=== PATIENT | male | born 1950 | race Caucasian/White ===

== ENCOUNTER 2018-03-08 08:59 | Outpatient (CLI) | payer BC ==
[2018-03-08] MEDS ORDERED: Gadobenate Dimeglumine 529 MG/1 ML (20ML VIAL) ONE (10:38)
[2018-03-08 11:02] LABS: Estimated GFR-MDRD - POC Greater than 90
--- NOTE | 2018-03-08 11:43 | RAD ---
[facility] VIEW OF SINUSES: Date: 03/08/18 HISTORY: MRI screening for metal. FINDINGS: Sinuses are clear. No metallic foreign body is seen. IMPRESSION: No evidence of metallic foreign body. POS: [facility]
--- NOTE | 2018-03-08 13:50 | MRI ---
MRI OF THE ABDOMEN WITHOUT AND WITH CONTRAST: Date: 03/08/18 HISTORY: Hepatitis C with abnormality of alphafetoprotein. TECHNIQUE: Multiplanar, multisequence MR images were obtained of the abdomen without and with IV contrast. FINDINGS: In the right lobe of the liver, near the dome, there is a poorly circumscribed lesion measuring appro ximately 2.8 cm in size. This demonstrates a very subtle high T2 signal. After administration of cont rast, this area appears to enhance along the periphery. There is questionable washout of this lesion on the delayed phase images compared to the background of the liver. This does not ever appear to enh ance centrally. There is an area of hyperenhancement peripheral to this abnormality which likely repr esents THID. Along the periphery of the liver in this area of THID, there is a tiny, nonenhancing foc us of high T2 signal measuring 2-3 mm in size which may represent a cyst. No biliary dilatation is se en. The gallbladder, kidneys, adrenal glands, spleen, and pancreas are unremarkable. No abdominal adenopa thy is seen. No marrow signal abnormality is present. IMPRESSION: Lesion in right lobe of liver. This is a LI-RADS Category 3 abnormality given its size and lack of ce ntral enhancement. A follow-up MRI in 3 months is recommended to evaluate for stability versus growth of the lesion. With growth, this would then place this lesion into a LI-RADS Category 4, for which b iopsy would be recommended. POS: [facility]
== END 2018-03-08 09:00 | disposition home or self-care (01) ==
LOC: BICMRI 08:59
PROVIDERS: ATTEND Internal Medicine Gastroenterology
DX: R77.2 Abnormality of alphafetoprotein (principal); Z86.19 Personal history of other infectious and parasitic diseases
CPT/HCPCS: 70210; 74183; 82565; A9579

== ENCOUNTER 2021-06-24 08:30 | Outpatient (CLI) | payer BC ==
[2021-06-24] MEDS ORDERED: Magnevist 469MG/ML 20 ML VIAL ONE ×2 (14:55)
== END 2021-06-24 08:31 | disposition home or self-care (01) ==
LOC: BICMRI 08:30
PROVIDERS: ATTEND Internal Medicine Hematology & Oncology
DX: C22.0 Liver cell carcinoma (principal); Z98.890 Other specified postprocedural states
CPT/HCPCS: 72197; 74183; A9579

== ENCOUNTER 2022-05-09 08:00 | Outpatient (CLI) | payer BC | END 2022-05-09 08:01 | disposition home or self-care (01) | LOC: PET 08:00 | PROVIDERS: ATTEND Internal Medicine Hematology & Oncology | DX: C22.0 Liver cell carcinoma (principal); R91.1 Solitary pulmonary nodule | CPT/HCPCS: 78815; A9552 ==

== ENCOUNTER 2023-01-31 10:15 | Outpatient (CLI) | payer BC | END 2023-01-31 10:16 | disposition home or self-care (01) | LOC: PET 10:15 | PROVIDERS: ATTEND Internal Medicine Hematology & Oncology | DX: C22.0 Liver cell carcinoma (principal) | CPT/HCPCS: 78815; A9552 ==

== ENCOUNTER 2024-02-08 08:45 | Outpatient (CLI) | payer BC | END 2024-02-08 08:46 | disposition home or self-care (01) | LOC: PET 08:45 | PROVIDERS: ATTEND Internal Medicine Hematology & Oncology | DX: C22.0 Liver cell carcinoma (principal); R77.2 Abnormality of alphafetoprotein | CPT/HCPCS: 78815; A9552 ==

== ENCOUNTER → 2024-04-23 | Day surgery (SDC) | payer MEDICARE ==
[~2024-04-23] MED LIST: Lidocaine 1% PF 5 ML VIAL ONE; Sodium Bicarbonate 2.5 MEQ/5 ML SDV ONE
[2024-04-23 13:17] LABS: %Basophils 1.6 % (0.0-1.0); %Eosinophils 11.5 % (0.0-10.0); %Lymphocytes 11.3 % (21.0-51.0); %Monocytes 8.2 % (0.0-10.0); %Neutrophils 67.2 % (42.0-75.0); Hematocrit 36.1 % (42.0-52.0); Hemoglobin 12.1 g/dL (14.0-18.0); Mean Corpuscular HGB CONC 33.5 g/dL (32.0-36.0); Mean Corpuscular Volume 92.6 fL (78.0-98.0); Mean Platelet Volume 9.7 fL (7.4-10.4); Platelet Count 156 10x3/uL (130-400); RBC Distribution Width 14.4 % (11.5-14.5)
[2024-04-23 13:30] LABS: Prothrombin Time 13.4 sec (12.0-14.7)
[2024-04-23 13:31] LABS: PTT 36.3 sec (22.9-36.1)
== END ==
LOC: ULT 13:00
PROVIDERS: ATTEND Physician Assistant Medical
PROC: 0W9G30Z Drainage of Peritoneal Cavity with Drainage Device, Percutaneous Approach (ICD-10-PCS; principal; 2024-04-23)
DX: R18.8 Other ascites (principal); I10 Essential (primary) hypertension; E78.00 Pure hypercholesterolemia, unspecified; Z79.82 Long term (current) use of aspirin; Z79.899 Other long term (current) drug therapy; Z79.890 Hormone replacement therapy; Z98.2 Presence of cerebrospinal fluid drainage device; Z87.891 Personal history of nicotine dependence
CPT/HCPCS: 36415; 49083; 85025; 85610; 85730

== ENCOUNTER → 2024-05-14 | Day surgery (SDC) | payer MEDICARE ==
[2024-05-14 14:37] VITALS: BP 127/71; TEMP 99.7
[2024-05-14 20:08] LABS: RBC Count-Automated (BF) 103 /cu.mm; WBC/Nucleated-Auto (BF) 274 /cu.mm
[2024-05-14 20:09] LABS: BF Color Yellow; Body Fluid Source Peritoneal Fluid; Clarity Clear (Clear); Tube # EDTA
[2024-05-15 10:42] LABS: BF Segmented Neutrophils 19 %; Cell Count Non Hematic 53 %; Lymphocytes 28 %
== END ==
LOC: ULT 12:08
PROVIDERS: ATTEND Internal Medicine Gastroenterology
PROC: 0W9G30Z Drainage of Peritoneal Cavity with Drainage Device, Percutaneous Approach (ICD-10-PCS; principal; 2024-05-14)
DX: R18.8 Other ascites (principal); C22.0 Liver cell carcinoma; I85.00 Esophageal varices without bleeding; E78.00 Pure hypercholesterolemia, unspecified; I10 Essential (primary) hypertension; Z95.5 Presence of coronary angioplasty implant and graft; Z98.890 Other specified postprocedural states; Z79.82 Long term (current) use of aspirin; Z79.899 Other long term (current) drug therapy; Z87.891 Personal history of nicotine dependence; Z88.5 Allergy status to narcotic agent
CPT/HCPCS: 49083; 82042; 84157; 85060; 88112; 88305; 89051

== ENCOUNTER 2024-05-28 09:14 | Day surgery (SDC) | payer MEDICARE ==
[2024-05-28 09:33] LABS: %Basophils 1.6 % (0.0-1.0); %Eosinophils 12.4 % (0.0-10.0); %Lymphocytes 15.6 % (21.0-51.0); %Monocytes 10.4 % (0.0-10.0); %Neutrophils 59.7 % (42.0-75.0); Hematocrit 33.6 % (42.0-52.0); Hemoglobin 10.9 g/dL (14.0-18.0); Mean Corpuscular HGB CONC 32.4 g/dL (32.0-36.0); Mean Corpuscular Hemoglobin 30.3 pg (27.0-31.0); Mean Corpuscular Volume 93.3 fL (78.0-98.0); Mean Platelet Volume 10.7 fL (7.4-10.4); Platelet Count 129 10x3/uL (130-400); RBC Distribution Width 14.9 % (11.5-14.5)
[2024-05-28 09:53] LABS: PTT 35.1 sec (22.9-36.1); Prothrombin Time 13.5 sec (12.0-14.7)
[2024-05-28] MEDS ORDERED: Sodium Bicarbonate 2.5 MEQ/5 ML SDV ONE (10:12)
[2024-05-28] MEDS ORDERED: Lidocaine 1% PF 5 ML VIAL ONE ×2 (10:12→10:51)
== END 2024-05-28 12:10 | disposition home or self-care (01) ==
LOC: ULT 09:14
PROVIDERS: ATTEND Internal Medicine Gastroenterology
PROC: 0W9G30Z Drainage of Peritoneal Cavity with Drainage Device, Percutaneous Approach (ICD-10-PCS; principal; 2024-05-28)
DX: R18.8 Other ascites (principal); C22.0 Liver cell carcinoma; I85.00 Esophageal varices without bleeding; E03.9 Hypothyroidism, unspecified; I10 Essential (primary) hypertension; E78.00 Pure hypercholesterolemia, unspecified; Z90.49 Acquired absence of other specified parts of digestive tract; Z98.890 Other specified postprocedural states; Z88.5 Allergy status to narcotic agent; Z79.82 Long term (current) use of aspirin; Z79.899 Other long term (current) drug therapy; Z79.890 Hormone replacement therapy; Z87.891 Personal history of nicotine dependence
CPT/HCPCS: 49083; 85025; 85610; 85730

== ENCOUNTER 2024-06-09 14:17 | Day surgery (SDC) | payer MEDICARE ==
[2024-06-09] MEDS ORDERED: Lidocaine 1% PF 5 ML VIAL ONE (14:44)
== END 2024-06-09 16:10 | disposition home or self-care (01) ==
LOC: ULT 14:17
PROVIDERS: ATTEND Internal Medicine Gastroenterology
PROC: 0W9G30Z Drainage of Peritoneal Cavity with Drainage Device, Percutaneous Approach (ICD-10-PCS; principal; 2024-06-09)
DX: R18.8 Other ascites (principal); I85.10 Secondary esophageal varices without bleeding; I10 Essential (primary) hypertension; E78.00 Pure hypercholesterolemia, unspecified; Z90.49 Acquired absence of other specified parts of digestive tract; Z79.82 Long term (current) use of aspirin; Z79.899 Other long term (current) drug therapy; Z87.891 Personal history of nicotine dependence
CPT/HCPCS: 49083

== ENCOUNTER 2024-06-17 09:30 | Outpatient (CLI) | payer MEDICARE | END 2024-06-17 09:31 | disposition home or self-care (01) | LOC: PET 09:30 | PROVIDERS: ATTEND Radiology Radiation Oncology | DX: C22.0 Liver cell carcinoma (principal); C79.71 Secondary malignant neoplasm of right adrenal gland | CPT/HCPCS: 78815; A9552 ==

== ENCOUNTER 2024-06-24 12:04 | Day surgery (SDC) | payer MEDICARE ==
[2024-06-24] MEDS ORDERED: Lidocaine 1% PF 5 ML VIAL ONE (12:05)
[2024-06-24] MEDS ORDERED: Sodium Bicarbonate 2.5 MEQ/5 ML SDV ONE (12:05)
== END 2024-06-24 13:40 | disposition home or self-care (01) ==
LOC: ULT 12:04
PROVIDERS: ATTEND Internal Medicine Gastroenterology
PROC: 0W9G3ZZ Drainage of Peritoneal Cavity, Percutaneous Approach (ICD-10-PCS; principal; 2024-06-24)
DX: R18.8 Other ascites (principal); C22.0 Liver cell carcinoma; I85.00 Esophageal varices without bleeding; I10 Essential (primary) hypertension; E78.00 Pure hypercholesterolemia, unspecified; Z87.891 Personal history of nicotine dependence; Z95.5 Presence of coronary angioplasty implant and graft; Z90.49 Acquired absence of other specified parts of digestive tract; Z88.5 Allergy status to narcotic agent; Z79.890 Hormone replacement therapy; Z79.82 Long term (current) use of aspirin; Z79.899 Other long term (current) drug therapy
CPT/HCPCS: 49083